=== PATIENT | female | born 1960 ===

== ENCOUNTER 2022-03-23 04:01 | Day surgery (SDC) | payer OTHER, BC ==
[2022-03-20 17:36] VITALS: BMI 29.8
[2022-03-23] MEDS ORDERED: LIDOCAINE 1%/EPI 1:100000 (20 ML MULTI DOSE VIAL) ONE (07:21)
[2022-03-23] MEDS ORDERED: BUPIVACAINE HCL/PF 0.5% (5MG/ML) 10 ML VIAL ONE (07:21)
[2022-03-23] MEDS ORDERED: MIDAZOLAM HCL 2 MG/2 ML SINGLE DOSE VIAL ONE (08:07)
[2022-03-23] MEDS ORDERED: PROPOFOL 40 ML ONE (08:08)
[2022-03-23] MEDS ORDERED: SUCCINYLCHOLINE CHLORIDE 200 MG/10 ML SYRINGE ONE (08:08)
[2022-03-23] MEDS ORDERED: ROCURONIUM BROMIDE 50 MG/5 ML SYRINGE ONE (08:08)
[2022-03-23] MEDS ORDERED: ceFAZolin SODIUM 1 GM VIAL IVPB ONE (08:25)
[2022-03-23] MEDS ORDERED: LIDOCAINE 1%/EPI 1:100000 (20 ML MULTI DOSE VIAL) IJ ONE (08:55)
[2022-03-23] MEDS ORDERED: BUPIVACAINE HCL/PF 0.5% (5MG/ML) 10 ML VIAL IJ ONE (08:55)
[2022-03-23] MEDS ORDERED: MICROFIBRILLAR COLLAGEN 1 GM EACH TP ONE (09:28)
[2022-03-23] MEDS ORDERED: ONDANSETRON 4 MG/2 ML VIAL IVPUSH PRN (10:11)
[2022-03-23] MEDS ORDERED: oxyCODONE HCL 5 MG TABLET PO PRN (10:11)
[2022-03-23] MEDS ORDERED: LACTATED RINGERS SOLUTION 1,000 ML IV SCH (10:15)
[2022-03-23 14:18] VITALS: BP 122/68; PULSE 98; RESP 20; TEMP 97.7
== END 2022-03-23 14:00 | disposition home or self-care (01) ==
LOC: JASU-SURG 04:01
PROVIDERS: ATTEND Surgery
PROC: 0GTH0ZZ Resection of Right Thyroid Gland Lobe, Open Approach (ICD-10-PCS; 2022-03-23)
PROC: 0GTN0ZZ Resection of Right Inferior Parathyroid Gland, Open Approach (ICD-10-PCS; principal; 2022-03-23 08:00)
DX: C73 Malignant neoplasm of thyroid gland (principal); E06.9 Thyroiditis, unspecified; E11.9 Type 2 diabetes mellitus without complications; Z79.84 Long term (current) use of oral hypoglycemic drugs
CPT/HCPCS: 82962; 86850; 86900; 86901; 88305-TC; 88307-TC; 94760